=== PATIENT | female | born 1980 | race Caucasian/White ===

== ENCOUNTER 2024-11-26 07:12 | Day surgery (SDC) | payer BC ==
--- NOTE | 2024-11-24 09:28 | NUR ---
PHONE CALL AT THIS TIME, NO ANSWR LEFT MESSAGE [phone]
[~2024-11-26] VITALS: Ht 162.6 cm; Wt 84.1 kg
[~2024-11-26 07:12] MED LIST: CEFAZOLIN SODIUM 2 GM/20 ML SYR IV SCH; IBLOOD GLUCOSE TEST STRIP 1 EA TEST VI PRN; KETOROLAC TROMETHAMINE 30 MG/ML VIAL ONE; LACTATED RINGER'S 1,000 ML IV SCH; LIDOCAINE HCL 1% 5 ML SDV INJ ONE; SKYRIZI150 MG/1 M SQ
[2024-11-26 07:28] VITALS: BP 117/77
[2024-11-26] MEDS ORDERED: propofoL 200 MG/20 ML VIAL ONE (07:37)
[2024-11-26] MEDS ORDERED: MIDAZOLAM HCL 2 MG/2 ML VIAL ONE (07:37)
[2024-11-26] MEDS ORDERED: LIDOCAINE HCL 2% 5 ML SDV ONE (07:37)
[2024-11-26] MEDS ORDERED: fentaNYL citrate 100 MCG/2 ML VIAL ONE (07:37)
[2024-11-26] MEDS ORDERED: DICLOFENAC SOD 75 MG TABEC PO SCH (09:00)
[2024-11-26] MEDS ORDERED: HYDROCODONE/ACETA 7.5/325 TAB PO PRN (09:00)
[2024-11-26] MEDS ORDERED: ondansetron HCL 4 MG/2 ML VIAL IV PRN (09:15)
[2024-11-26] MEDS ORDERED: fentaNYL citrate 50 MCG/ML SDV IV PRN (09:15)
[2024-11-26] MEDS ORDERED: NALOXONE HCL 0.4 MG SYR IV PRN (09:15)
[2024-11-26] MEDS ORDERED: IBLOOD GLUCOSE TEST STRIP 1 EA TEST VI PRN (09:15)
[2024-11-26] MEDS ORDERED: ACETAMINOPHEN 1,000 MG/100 ML VIAL ONE (09:25)
[2024-11-26] MEDS ORDERED: SEVOFLURANE 250 ML BTL INH ONE (09:33)
[2024-11-26] MEDS ORDERED: KETOROLAC TROMETHAMINE 30 MG/ML VIAL ONE (09:37)
[2024-11-26] MEDS ORDERED: ondansetron HCL 4 MG/2 ML VIAL ONE (09:37)
[2024-11-26] MEDS ORDERED: DEXAMETHASONE SOD PHOS 4 MG/ML VIAL ONE (09:37)
[2024-11-26] MEDS ORDERED: HYDROCODON-ACE1 EA11 PO (09:44)
[2024-11-26] MEDS ORDERED: DICLOFENAC SODI75 MG PO (09:44)
--- NOTE | 2024-11-26 09:59 | NUR ---
11/26/24 0959 Sheets,Roshni 0942 PT ARRIVED TO PACU ON 6L VIA MASK WITH ORAL AIRWAY IN PLACE. RESP EVEN AND UNLABORED. VSS. 0956 PT WAKES AND ORAL AIRWAY AND MASK REMOVED. PT DENIES CONCERNS. PT REPORTS FULL FEELING IN LEFT FOOT.
[2024-11-26 10:29] VITALS: BP 114/65
--- NOTE | 2024-11-26 10:33 | NUR ---
1025- PT ARRIVES FROM PACU. VITAL SIGNS OBTAINED. BEDSIDE REPORT RECIEVED BY MAJO GUDINO. SURGICAL SITE ASSESSED TOGETHER. PT AND DENY QUESTIONS AND CONCERNS AT THIS TIME. PT REPORTS PAIN AND DENIES NAUSEA. PT IS ENCOURAGED TO EAT SOMETHING SO WE CAN AVOID STOMACH UPSET WITH PAIN MEDICATION AND PT SIPPING ON WATER AND TOLERATING WELL. DISCHARGE INFORMATION DISCUSSED AND PT IS AGREEABLE. STRAWBERRY JELLO GIVEN AND COFFEE.
--- NOTE | 2024-11-26 11:11 | OR ---
[facility] [address], [place] [address] Signed DATE OF OPERATION: 11/26/2024 SURGEON: Mamadou Perla MD PREOPERATIVE DIAGNOSIS: Medial meniscus tear, left knee. POSTOPERATIVE DIAGNOSIS: Medial meniscus tear, left knee. PROCEDURE PERFORMED: Left knee arthroscopy with partial medial meniscectomy. TOOL DRESSER: None. ANESTHESIA: General. BLOOD LOSS: Minimal. BRIEF HISTORY: Rosibel is a 43-year-old female with pain and instability in her knee. MRI was consistent with fairly significant medial meniscus tear. Risks and benefits of operative treatment were discussed with her and she elected to proceed. Once consent was obtained she was taken to the operating room. After adequate anesthesia she was placed on operating room table. Right leg was flexed, abducted and externally rotated on a well-padded leg soto. Left was placed in well-padded leg soto without a tourniquet. The leg was prepped and draped in a standard sterile fashion. Portal sites were injected with 0.25% Marcaine with epinephrine. The standard inferolateral and superolateral portals were made. The scope was introduced in the knee. ARTHROSCOPIC FINDINGS: The knee showed moderate synovitis throughout. The patella was intact and noted to track well. Medial and lateral gutters were clear. Although there were some small osteophytes. ACL and PCL were intact. Lateral compartment showed a discoid meniscus. No other abnormalities. The medial meniscus showed a complex tear starting at the posterior midbody and extending posteriorly to the mid posterior portion, but not to the root. Electronically Signed By: MAMADOU PERLA MD 11/26/24 1111 PATIENT NAME: ROSIBEL HORNER OPERATIVE REPORT DATE OF : 82 REPORT #: [id number] PHYSICIAN: MAMADOU PERLA MD PCP: MITCH SEO PA-C REPORT IS CONFIDENTIAL AND NOT TO BE RELEASED WITHOUT AUTHORIZATION [facility] [address], [place] [address] Signed DESCRIPTION OF OPERATION: Standard inferomedial portal was established after localization using a spinal needle. Straight and curved biters were then used to trim the meniscus tear back to stable rim anteriorly and posteriorly. The shaver was then used to smooth the meniscus and feathered it out and all debris was evacuated. The scope was then withdrawn. Portals were closed with 3-0 nylon and the knee was injected with 60 mg Toradol. The wounds were then dressed with Adaptic, ABD, and Olayinka wrap. She tolerated the procedure well. All sponge, needle, and instrument counts correct. Mamadou Perla MD BA/JERMANL /[id number] Copies: ~ Electronically Signed By: MAMADOU PERLA MD 11/26/24 1111 PATIENT NAME: ROSIBEL HORNER OPERATIVE REPORT DATE OF : 82 REPORT #: [id number] PHYSICIAN: MAMADOU PERLA MD PCP: MITCH SEO PA-C REPORT IS CONFIDENTIAL AND NOT TO BE RELEASED WITHOUT AUTHORIZATION
[2024-11-26 11:30] VITALS: BP 129/69
--- NOTE | 2024-11-26 12:25 | NUR ---
1105- PT UP TO USE THE RESTROOM. PT REPORTS FEELINGS OF "TIGHTNESS" IN THE OPERATIVE KNEE. BUT DENIES PAIN. PT IS ABLE TO WALK TO THE RESTROOM WITH A SLIGHT LIMP. PT IS ABLE TO VOID AND MEET CRITERIA. PT IS ABLE TO RETURN FROM RESTROOM. 1145- PT GETTING DRESSED WITH HELP OF IN THE ROOM. IV REMOVED. DISCHARGE INFORMATION GONE OVER AND EDUCATION. PT AND DENY QUESTIONS AND CONCERNS. PT HAS ALL BELONGINGS. PT DC FROM DAY SURGERY VIA WHEELCHAIR AND IS ABLE TO GET INTO THE VEHICLE WITH NO ISSUES.
== END 2024-11-26 11:45 | disposition home or self-care (01) ==
LOC: DS 07:12
PROVIDERS: ATTEND Specialist
PROC: 0SBD4ZZ Excision of Left Knee Joint, Percutaneous Endoscopic Approach (ICD-10-PCS; principal; 2024-11-26 09:30)
DX: S83.232A Complex tear of medial meniscus, current injury, left knee, initial encounter (principal); M65.962 Unspecified synovitis and tenosynovitis, left lower leg; F17.210 Nicotine dependence, cigarettes, uncomplicated; X58.XXXA Exposure to other specified factors, initial encounter
CPT/HCPCS: 01400; 84703; J0131; J0690; J1100; J1885; J2003; J2250; J2405; J2704; J3010; J7121